=== PATIENT | female | born 1970 | race Caucasian/White ===

== ENCOUNTER 2019-05-02 09:04 | Emergency (ER) | payer BC ==
[2019-05-02] MEDS ORDERED: KETOROLAC TROMETHAMINE INJ/PF 30 MG/1 ML SDV IV ONE (09:07)
[2019-05-02] MEDS ORDERED: ONDANSETRON HCL INJ/PF 4 MG/2 ML SDV IV ONE ×2 (09:07→09:48)
[2019-05-02] MEDS ORDERED: NORMAL SALINE 1000 ML 1,000 ML IV ONE (09:07)
--- NOTE | 2019-05-02 09:09 | ER Document Report ---
ED Medical Screen (RME) - General Stated Complaint: UPPER ABDOMINAL PAIN Time Seen by Provider: 05/02/19 09:06 Primary Care Provider: ZIGGY MCCLAIN NP [Primary Care Provider] - Follow up as needed Mode of Arrival: Ambulatory Information source: Patient Notes: Patient is a 40-year-old female with past medical history of breast cancer and hypertension presenting to the emergency department with severe upper abdominal pain. Patient reports pain has been intermittent over the last week with severe worsening over the last few minutes. She was on shift while this started. She does report she has had intermittent nausea with vomiting. Few episodes of diarrhea. Denies fevers. She feels this may be her gallbladder. Exam: Patient in moderate distress, hyperventilating and rocking around in pain. Tenderness to palpation upper abdomen. I have greeted and performed a rapid initial assessment of this patient. A comprehensive ED assessment and evaluation of the patient, analysis of test results and completion of the medical decision making process will be conducted by additional ED providers. I have specifically instructed the patient or family members with the patient to immediately return to any nursing staff should anything change in the patient's condition or with their chief complaint. This medical record was dictated with voice recognizing software. There may be grammatical, syntax errors that are unintended. Doctor's Discharge - Discharge Referrals: ZIGGY MCCLAIN NP [Primary Care Provider] - Follow up as needed
[2019-05-02] MEDS ORDERED: ONDANSETRON HCL INJ/PF 4 MG/2 ML SDV ONE (09:47)
[2019-05-02] MEDS ORDERED: PANTOPRAZOLE SODIUM 40 MG VIAL IV ONE (09:48)
--- NOTE | 2019-05-02 10:04 | RADIOLOGY REPORT (SQ) ---
EXAM DESCRIPTION: U/S ABDOMEN LIMITED W/O DOP COMPLETED DATE/TIME: 05/02/2019 9:47 am REASON FOR STUDY: epigastric pain, N/V COMPARISON: None. TECHNIQUE: Dynamic and static grayscale images acquired of the abdomen and recorded on PACS. Additio nal selected color Doppler and spectral images recorded. LIMITATIONS: None. FINDINGS: PANCREAS: Normal. LIVER: The liver is enlarged measuring 19.6 cm demonstrating increased echogenicity consistent with f atty infiltration. LIVER VASCULATURE: Normal directional flow of the main portal vein and hepatic veins. GALLBLADDER: The gallbladder is normal. The gallbladder wall measures 1.5 mm. ULTRASOUND-DETECTED COULTER'S SIGN: Positive. INTRAHEPATIC DUCTS AND COMMON DUCT: CBD is normal measuring 5.1 mm. Intrahepatic ducts normal calibe r. No filling defects. INFERIOR VENA CAVA: Normal flow. AORTA: The upper abdominal aorta measures 2.2 cm in AP diameter. The mid abdominal aorta measures 1. 7 cm in AP diameter and distally 1.5 cm. RIGHT KIDNEY: The right kidney is normal measuring 11.4 x 4.9 x 4.9 cm. No hydronephrosis. IMPRESSION: Hepatomegaly with fatty infiltration the liver. TECHNICAL DOCUMENTATION: JOB ID: [id number] SC-[id number] 2010 [employer]- All Rights Reserved Reading location - IP/workstation name: [email or web address]
[2019-05-02] MEDS ORDERED: PROMETHAZINE HCL 25 MG TABLET PO ONE (10:20)
[2019-05-02] MEDS ORDERED: METOCLOPRAMIDE HCL INJ/PF 10 MG/2 ML SDV IV ONE (10:21)
[2019-05-02 10:25] LABS: APPEARANCE,URINE CLEAR; BILIRUBIN,URINE NEGATIVE (NEGATIVE); COLOR,URINE YELLOW; GLUCOSE, URINE NEGATIVE (NEGATIVE); KETONES,URINE NEGATIVE (NEGATIVE); LEUKOCYTE ESTERASE,URINE NEGATIVE (NEGATIVE); NITRITE,URINE NEGATIVE (NEGATIVE); PROTEIN,URINE NEGATIVE (NEGATIVE); URINE SPECIFIC GRAVITY 1.027; UROBILINOGEN,URINE NEGATIVE mg/dL (<2.0)
[2019-05-02] MEDS ORDERED: MORPHINE SULFATE 10 MG/ML INJ IV ONE (10:33)
[2019-05-02 10:45] LABS: ABSOLUTE BASOPHILS # (AUTO) 0.1 10^3/uL (0.0-0.2); ABSOLUTE EOSINOPHILS # (AUTO) 0.2 10^3/uL (0.0-0.6); ABSOLUTE MONOCYTES (AUTO) 0.7 10^3/uL (0.1-1.4); ABSOLUTE NEUT (AUTO) 13.5 10^3/uL (1.7-8.2); BASOPHILS % (AUTO) 0.4 % (0-2); EOSINOPHILS % (AUTO) 1.4 % (0-6); HEMATOCRIT 41.2 % (36.0-47.0); HEMOGLOBIN 13.4 g/dL (12.0-15.5); LYMPHOCYTES % (AUTO) 6.2 % (13-45); MEAN CORPUSCULAR HEMOGLOBIN 28.7 pg (27.0-33.4); MEAN CORPUSCULAR HGB CONC 32.6 g/dL (32.0-36.0); MEAN CORPUSCULAR VOLUME 88 fl (80-97); MONOCYTES % (AUTO) 4.4 % (3-13); PLATELET COUNT 251 10^3/uL (150-450); RED BLOOD COUNT 4.69 10^6/uL (3.72-5.28); SEGMENTED NEUTROPHILS % (AUTO) 87.6 % (42-78); TOTAL CELLS COUNTED % (AUTO) 100 %; WHITE BLOOD COUNT 15.4 10^3/uL (4.0-10.5)
[2019-05-02 10:55] LABS: ALKALINE PHOSPHATASE 50 U/L (38-126); ANION GAP 9 (5-19); ASPARTATE AMINO TRANSFERASE 28 U/L (14-36); BILIRUBIN,DIRECT 0.2 mg/dL (0.0-0.4); BILIRUBIN,TOTAL 0.6 mg/dL (0.2-1.3); BLOOD UREA NITROGEN 10 mg/dL (7-20); CARBON DIOXIDE 25 mmol/L (22-30); CHLORIDE 105 mmol/L (98-107); GLUCOSE 104 mg/dL (75-110); POTASSIUM 4.2 mmol/L (3.6-5.0)
--- NOTE | 2019-05-02 11:27 | RADIOLOGY REPORT (SQ) ---
EXAM DESCRIPTION: ACUTE ABDOMEN SERIES COMPLETED DATE/TIME: 05/02/2019 11:12 am REASON FOR STUDY: abd pain/voiting ? SBO COMPARISON: None. NUMBER OF VIEWS: Three views. TECHNIQUE: Frontal chest, supine abdomen and upright/decubitus abdomen radiographic images acquired. LIMITATIONS: None. FINDINGS: CHEST: The heart pulmonary vasculature are normal. The lung tee are clear. FREE AIR: No pneumoperitoneum. BOWEL GAS PATTERN: Nonobstructive pattern. No dilated loops or air fluid levels. CALCIFICATIONS: No suspicious calcifications. HARDWARE: None in the abdomen. SOFT TISSUES: No gross mass or suggestion of organomegaly. BONES: No acute fracture. No worrisome bone lesions. OTHER: No other significant finding. IMPRESSION: Normal abdomen. No acute disease. TECHNICAL DOCUMENTATION: JOB ID: [id number] SC-[id number] 2010 [employer]- All Rights Reserved Reading location - IP/workstation name: [email or web address]
--- NOTE | 2019-05-02 14:33 | ER Document Report ---
ED General - General Chief Complaint: Abdominal Pain Stated Complaint: UPPER ABDOMINAL PAIN Time Seen by Provider: 05/02/19 09:06 Primary Care Provider: ZIGGY MCCLAIN NP [NURSE PRACTITIONER] - Follow up as needed Mode of Arrival: Ambulatory TRAVEL OUTSIDE OF THE [place] IN LAST 30 DAYS: No - HPI Notes: This is a 48-year-old female who presents today with a complaint of epigastric and right upper quadrant abdominal pain for the past 1 week. Patient describes the pain as aching, sometimes burning. Pain is sometimes worse with food. Associated symptoms include nausea and vomiting. She denies any lower abdominal pain. She denies any diarrhea or constipation. She denies any fever or chills. She describes her symptoms as moderate. - Related Data Allergies/Adverse Reactions: Sulfa (Sulfonamide Antibiotics) Adverse Reaction (Verified 05/02/19 09:16) Hives Past Medical History - General Information source: Patient - Social History Smoking Status: Never Smoker Chew tobacco use (# tins/day): No Frequency of alcohol use: None Drug Abuse: None Family History: Reviewed & Not Pertinent Patient has suicidal ideation: No Patient has homicidal ideation: No - Past Medical History Cardiac Medical History: Reports: Hx Hypertension Review of Systems - Review of Systems Constitutional: denies: Fever Cardiovascular: denies: Chest pain Respiratory: denies: Cough Gastrointestinal: Abdominal pain, Nausea, Vomiting. denies: Diarrhea -: Yes All other systems reviewed and negative Physical Exam - Vital signs Vitals: Temp Pulse Resp BP Pulse Ox 97.8 F 105 H 22 H 152/108 H 100 05/02/19 09:05 05/02/19 09:05 05/02/19 09:05 05/02/19 09:05 05/02/19 09:05 - General General appearance: Appears well, Alert - Respiratory Respiratory status: No respiratory distress Chest status: Nontender Breath sounds: Normal Chest palpation: Normal - Cardiovascular Rhythm: Regular Heart sounds: Normal auscultation Murmur: No - Abdominal Inspection: Normal Distension: No distension Bowel sounds: Normal Tenderness: Tender - There is epigastric and right upper quadrant tenderness. There is no guarding or rebound. No peritoneal signs. Organomegaly: No organomegaly - Extremities General upper extremity: Normal inspection, Nontender, Normal color, Normal ROM, Normal temperature General lower extremity: Normal inspection, Nontender, Normal color, Normal ROM, Normal temperature, Normal weight bearing. No: Sara's sign - Neurological Neuro grossly intact: Yes Cognition: Normal Orientation: AAOx4 Capac Coma Scale Eye Opening: Spontaneous Chanel Coma Scale Verbal: Oriented Chanel Coma Scale Motor: Obeys Commands Chanel Coma Scale Total: 15 Speech: Normal Motor strength normal: LUE, RUE, LLE, RLE Sensory: Normal - Psychological Associated symptoms: Normal affect, Normal mood - Skin Skin Temperature: Warm Skin Moisture: Dry Skin Color: Normal Course - Re-evaluation Re-evalutation: 05/02/19 12:30 Differential diagnosis includes gastritis versus pancreatitis versus cholelithiasis versus cholecystitis versus nonspecific abdominal pain. Bowel obstruction is less likely. There is no clinical suspicion for acute appendicitis with no lower abdominal pain. 05/02/19 13:34 Patient reevaluated. Patient is still vomiting. Additional dose of Zofran ordered. 14;01 Patient reevaluated. Patient is doing better. Labs and imaging reviewed and discussed with patient. We will put her on a PPI for gastritis. 05/02/19 14:38 Patient is doing well. She feels better. Tolerates p.o. She is stable for discharge. Follow-up discussed. - Vital Signs Vital signs: Temp Pulse Resp BP Pulse Ox 97.8 F 79 16 148/83 H 100 05/02/19 13:21 05/02/19 13:21 05/02/19 13:21 05/02/19 13:21 05/02/19 13:21 - Laboratory Result Diagrams: 05/02/19 10:25 05/02/19 10:25 Laboratory results interpreted by me: 05/02/19 10:25 WBC 15.4 H Lymph % (Auto) 6.2 L Absolute Neuts (auto) 13.5 H Seg Neutrophils % 87.6 H Discharge - Discharge Clinical Impression: Acute gastritis Qualifiers: Gastritis type: unspecified gastritis Gastritis bleeding: without bleeding Qualified Code(s): K29.00 - Acute gastritis without bleeding Abdominal pain Qualifiers: Abdominal location: upper abdomen, unspecified Qualified Code(s): R10.10 - Upper abdominal pain, unspecified Disposition: HOME, SELF-CARE Instructions: Abdominal Pain ([facility]), Gastritis ([facility]) Additional Instructions: Return if worse or concerns. Prescriptions: Tramadol HCl [Ultram 50 mg Tablet] 50 mg PO Q6HP PRN #20 tablet PRN Reason: Pain Scale Of 3 Dicyclomine HCl [Bentyl 20 mg Tablet] 20 mg PO QID PRN #20 tablet PRN Reason: Abdominal Cramping Esomeprazole Mag Trihydrate [Nexium] 40 mg PO DAILY 30 Days #30 capsule. Ondansetron [Zofran Odt 4 mg Tablet] 1 - 2 tab PO Q4H PRN #15 tab.rapdis PRN Reason: For Nausea/Vomiting Referrals: ZIGGY MCCLAIN, CASH ACCOUNTING CLERK [NURSE PRACTITIONER] - Follow up as needed
[2019-05-02 14:50] VITALS: BP 143/78
== END 2019-05-02 14:54 | disposition home or self-care (01) ==
LOC: ER 09:04
DX: K29.00 Acute gastritis without bleeding (principal); R10.13 Epigastric pain; R10.11 Right upper quadrant pain; R10.816 Epigastric abdominal tenderness; R10.811 Right upper quadrant abdominal tenderness; R11.2 Nausea with vomiting, unspecified; I10 Essential (primary) hypertension
CPT/HCPCS: 99284; 96361; 96374; 96375; 36415; 83690; 85025; 80053; 81001; 74022; 76705; J1885; J2765; J2270; S0164; J2405; J7030

== ENCOUNTER 2020-08-08 13:21 | Emergency (ER) | payer BC ==
[2020-08-08] MEDS ORDERED: HYDROCODONE/ACETAMINOPHEN 5-325 MG TABLET PO ONE (13:44)
--- NOTE | 2020-08-08 13:44 | ER Document Report ---
ED Medical Screen (RME) - General Chief Complaint: Eye Injury Stated Complaint: EYE INJURY Time Seen by Provider: 08/08/20 13:40 Primary Care Provider: LINDA ALONZO MD [Primary Care Provider] - Follow up as needed Mode of Arrival: Ambulatory Information source: Patient Notes: HPI; 50-year-old female presents to the emergency room after being hit to the right side of her face with the edge of a cardboard wrapping paper roll. States her went to throw it from another room when it hit her in the face causing her to fall backward and landed on the bed. She denies any loss of consciousness. Denies any other injuries. Was nauseated yesterday denies any nausea today. Took leftover Ultram yesterday without relief. No use of contacts. PE: Alert and oriented x3. PERRLA, EOMI no raccoon eyes, no walters signs, there is ecchymosis with swelling noted to the right upper eyelid, around the right eye. Globe is nontender to palpation. Upper right eye is tender to palpation. Lungs: Clear to auscultation without rales, rhonchi, wheezes. Heart: Regular rate rhythm without murmurs, rubs, gallops. I have greeted and performed a rapid initial assessment of this patient. A comprehensive ED assessment and evaluation of the patient, analysis of test results and completion of the medical decision making process will be conducted by additional ED providers. I have specifically instructed the patient or family members with the patient to immediately return to any nursing staff should anything change in the patient's condition or with their chief complaint. TRAVEL OUTSIDE OF THE [place] IN LAST 30 DAYS: No - Related Data Allergies/Adverse Reactions: Sulfa (Sulfonamide Antibiotics) Adverse Reaction (Verified 05/02/19 09:16) Hives Past Medical History - Past Medical History Cardiac Medical History: Reports: Hx Hypertension Physical Exam - Vital signs Vitals: Temp Pulse Resp BP Pulse Ox 98.2 F 76 20 163/103 H 99 08/08/20 13:30 08/08/20 13:30 08/08/20 13:30 08/08/20 13:30 08/08/20 13:30 Course - Vital Signs Vital signs: Temp Pulse Resp BP Pulse Ox 98.2 F 76 20 163/103 H 99 08/08/20 13:30 08/08/20 13:30 08/08/20 13:30 08/08/20 13:30 08/08/20 13:30 Doctor's Discharge - Discharge Referrals: LINDA ALONZO MD [Primary Care Provider] - Follow up as needed
--- NOTE | 2020-08-08 14:33 | RADIOLOGY REPORT (SQ) ---
EXAM DESCRIPTION: CT FACIAL AREA WITHOUT IMAGES COMPLETED DATE/TIME: 08/08/2020 2:14 pm REASON FOR STUDY: trauma (hit in eye with wrapping paper) COMPARISON: None. TECHNIQUE: Noncontrasted images through the facial bones and orbits windowed for bone and soft tissu e. Additional coronal and sagittal reconstructed images reviewed. All images stored on PACS. All CT scanners at this facility use dose modulation, iterative reconstruction, and/or weight based d osing when appropriate to reduce radiation dose to as low as reasonably achievable (ALARA). [facility]: Dose Right [facility]: CareDose [facility]: Dose Right [facility]: Teradose 4D [facility]: [employer] RADIATION DOSE: mGy. LIMITATIONS: None. FINDINGS: FACIAL BONES: No fracture or bone lesion. Zygomatic arches, mandibular condyles and ptery gopalatine plates are well aligned. ORBITS: Intact. No fracture. Symmetric intact globes and retroorbital soft tissues. PARANASAL SINUSES: Clear. No significant mucosal thickening, mass or fluid. No nasal polyps. Maxill umair sinus outlets are patent. SOFT TISSUES: Mild subcutaneous stranding along the right pre maxillary and pre orbital soft tissues. No focal collection. No discrete mass. Multiple shotty bilateral cervical nodes with few borderli ne enlarged nodes. Largest right level 2 node measures 11 mm in short axis (series 2, image 21). INFERIOR BRAIN: Limited view. No acute findings. OTHER: No other significant finding. IMPRESSION: 1. Mild subcutaneous stranding along the right pre maxillary and pre orbital soft tissu es. No focal collection. Unremarkable orbits. 2. Multiple shotty bilateral cervical nodes with few borderline enlarged nodes, possibly reactive. Recommend correlation with patient symptoms/history. TECHNICAL DOCUMENTATION: JOB ID: [id number] Quality ID # [id number]: Final reports with documentation of one or more dose reduction techniques (e.g., Au tomated exposure control, adjustment of the mA and/or kV according to patient size, use of iterative reconstruction technique) 2010 [employer] All Rights Reserved Reading location - IP/workstation name: [email or web address]
--- NOTE | 2020-08-08 15:30 | ER Document Report ---
HPI - HPI Patient complains to provider of: Right eye injury Time Seen by Provider: 08/08/20 13:40 Pain Level: 3 Context: 50-year-old female past medical history significant for breast cancer and hypertension presents to the emergency room with right eye pain. Patient states they were wrapped and presents yesterday when her threw a large roll of wrapping paper to the bedroom she walked in as it was being "torpedo" into the room hitting her in her right eye. States she was knocked to the bed but did not sustain any other injuries. There was no loss of consciousness. Presents today with worsening pain and nausea. States she did take a leftover tramadol yesterday with minimal relief. Denies use of contacts. Denies any visual changes. Associated Symptoms: None Exacerbated by: Denies Relieved by: Denies Similar symptoms previously: No Recently seen / treated by doctor: No - ROS Systems Reviewed and Negative: Yes All other systems reviewed and negative - EENT EENT: REPORTS: Eye problems - NEURO Neurology: DENIES: Headache, Vision blurred - GASTROINTESTINAL Gastrointestinal: REPORTS: Nausea - REPRODUCTIVE Reproductive: DENIES: : - DERM Skin Color: Ecchymosis Past Medical History - General Information source: Patient - Social History Smoking Status: Current Every Day Smoker Chew tobacco use (# tins/day): No Frequency of alcohol use: None Drug Abuse: None Family History: Reviewed & Not Pertinent - Past Medical History Cardiac Medical History: Reports: Hx Hypertension Renal/ Medical History: Reports: Hx Kidney Stones Past Surgical History: Reports: Hx Mastectomy - right, Hx Oral Surgery - right jaw, Hx Tonsillectomy Vertical Provider Document - CONSTITUTIONAL Agree With Documented VS: Yes Exam Limitations: No Limitations General Appearance: Moderate Distress - INFECTION CONTROL TRAVEL OUTSIDE OF THE [place] IN LAST 30 DAYS: No - HEENT HEENT: Normocephalic, PERRLA. negative: Conjuctival Injection Notes: Negative for walters signs, negative for raccoon eyes. Right eye lid is ecchymotic, there is ecchymosis noted to the right upper eye along the lateral aspect of the right eye and under the right eye. Globe is intact. There is tenderness on palpation to the orbit. No obvious deformity palpated. - NECK Neck: Normal Inspection, Supple, Thyroid Normal - RESPIRATORY Respiratory: Breath Sounds Normal, No Respiratory Distress, Chest Non-Tender - CARDIOVASCULAR Cardiovascular: Regular Rate, Regular Rhythm, No Murmur - MUSCULOSKELETAL/EXTREMETIES Musculoskeletal/Extremeties: FROM - NEURO Level of Consciousness: Awake, Alert, Appropriate Motor/Sensory: No Motor Deficit, No Sensory Deficit - DERM Integumentary: Warm, Dry, No Rash Course - Re-evaluation Re-evalutation: 08/08/20 15:30 Reviewed CAT scan findings with my attending Dr. Meade there were no acute fractures. However CAT scan did show shotty bilateral cervical lymph nodes. Further evaluation recommended. Patient was offered CT of the chest for further evaluation as she does have a previous history of breast cancer. Patient refused any additional testing at this time. She states she will follow-up outpatient with her oncologist. Patient's blood pressure does remain elevated. She denies any chest pain, shortness of breath or difficulty breathing. She is asymptomatic with her hypertension. States she did not take her blood pressure medication this morning. She will take it when she gets home. She has decrease d pain after receiving Ross. She will be discharged home on Ross and Zofran. E force records were reviewed okay for prescription. Patient was given strict return to the emergency room guidelines. Return for any new or worsening symptoms. All questions were answered. Patient verbalized understanding and agrees with plan of care. 08/08/20 19:17 - Vital Signs Vital signs: Temp Pulse Resp BP Pulse Ox 98.2 F 76 20 163/103 H 99 08/08/20 13:30 08/08/20 13:30 08/08/20 13:30 08/08/20 13:30 08/08/20 13:30 - Laboratory Results Critical Laboratory Results Reviewed: No Critical Results - Radiology Results Critical Radiology Results Reviewed: No Critical Results Discharge - Discharge Clinical Impression: Shotty lymph nodes Contusion of face Qualifiers: Encounter type: initial encounter Qualified Code(s): S00.83XA - Contusion of other part of head, initial encounter Condition: Stable Disposition: HOME, SELF-CARE Instructions: Cervical Lymphadenitis ([facility]), Contusion ([facility]) Additional Instructions: Take Zofran and Ross as needed for nausea and pain. You need to make sure to follow-up with your oncologist as soon as possible for the abnormal CT reading. Return to emergency room for any new or worsening symptoms. Ice 20 minutes 3 times a day. Prescriptions: Ondansetron [Zofran Odt 4 mg Tablet] 1 tab PO Q4HP PRN #10 tab.rapdis PRN Reason: Hydrocodone/Acetaminophen [Ross 5-325 Tablet] 1 each PO Q6H PRN #12 tablet PRN Reason: For Pain Forms: Return to Work Referrals: LINDA ALONZO MD [EMERITUS] - Follow up as needed
[2020-08-08 15:54] VITALS: BP 159/105
== END 2020-08-08 15:37 | disposition home or self-care (01) ==
LOC: ER 13:21
DX: S00.11XA Contusion of right eyelid and periocular area, initial encounter (principal); H57.11 Ocular pain, right eye; W20.8XXA Other cause of strike by thrown, projected or falling object, initial encounter; Y93.89 Activity, other specified; R11.0 Nausea; I10 Essential (primary) hypertension; F17.200 Nicotine dependence, unspecified, uncomplicated; Z85.3 Personal history of malignant neoplasm of breast
CPT/HCPCS: 70486; 99284